=== PATIENT | female | born 1940 | race Caucasian/White ===

== ENCOUNTER → 2018-07-22 | Outpatient (CLI) | payer OTHER ==
[~2018-07-22] MED LIST: AMLO5 PO; ASPI81CH; ASPI81CH PO; ASPI81EC PO; ATEN25 PO; Advil200 M1; Armour Thyroid15 MG PO; B-12250 MCG; BENZ100A PO; CLOP75 PO; CONEST.3; CONEST.625; CONEST.625 PO; CONEST.9 PO; DIAZ2; DIAZ2 PO; HYOMAX; HYOS.125 SL; LORA.5 PO; LORA1 PO; MONT5TCH PO; Motion Sickness25 M1 PO; Norvasc2.5 MG PO; OMEP20ER; OMEP20ER PO; ONDA4 PO; OXYM.05NI; PARO10; PARO10 PO; PRAV10 PO; PRED20 PO; Pepto-Bismol262 M1; RXLORA1 PO; STOOL SOFTENER1 EAC1; THYR60 PO; THYROID; THYROID MED; ZOLP5; ZOLP5 PO; [UNRECOGNIZED DRUG - OTHER]; [UNRECOGNIZED DRUG - OTHER]
== END | disposition home or self-care (01) ==
LOC: PLD 14:01 → LAB SHORT 14:01
DX: L57.0 Actinic keratosis (principal)
CPT/HCPCS: 88305

== ENCOUNTER → 2018-09-22 | Outpatient (CLI) | payer OTHER ==
[~2018-09-22] MED LIST changes: -ASPI81CH; +Aspirin EC81 MG PO; -B-12250 MCG; -CONEST.9 PO; +CYAN1000I IM; +HYOS.125 PO; -HYOS.125 SL; +Imitrex50 MG PO; +PROM25 PO; +Premarin0.3 MG PO; +Vitamin D2000 UNIT PO
[2018-09-23 05:42] LABS: Stool Occult Bld Immuno 1 Negative (NEGATIVE); Stool Occult Bld Immuno 2 Negative (NEGATIVE)
== END | disposition home or self-care (01) ==
LOC: LAB SHORT 07:25 → LAB EV 07:25
PROVIDERS: Internal Medicine Gastroenterology
DX: R10.84 Generalized abdominal pain (principal); K59.00 Constipation, unspecified
CPT/HCPCS: 82274

== ENCOUNTER 2018-10-15 16:47 | Observation (INO) | payer OTHER ==
[~2018-10-15] VITALS: Ht 165.1 cm; Wt 69.2 kg
[~2018-10-15 16:47] MED LIST changes: -Imitrex50 MG PO; -PROM25 PO; -Vitamin D2000 UNIT PO
[2018-10-15] MEDS ORDERED: Imitrex50 MG PO (17:24)
[2018-10-15 17:26] LABS: BASOPHILS ABSOLUTE AUTO 0.03 K/mm3 (0.00-0.23); BASOPHILS PERCENT AUTO 0 % (0-2); EOSINOPHILS ABSOLUTE AUTO 0.05 K/mm3 (0.00-0.68); EOSINOPHILS PERCENT AUTO 1 % (0-6); Hematocrit 39.8 % (33.0-51.0); Hemoglobin 12.6 g/dL (11.5-16.0); IMMATURE GRAN ABSOLUTE AUTO 0.01 K/mm3 (0.00-0.10); IMMATURE GRAN PERCENT AUTO 0 % (0-1); LYMPHOCYTES ABSOLUTE AUTO 2.11 K/mm3 (0.84-5.20); LYMPHOCYTES PERCENT AUTO 29 % (21-46); MONOCYTES ABSOLUTE AUTO 0.63 K/mm3 (0.16-1.47); MONOCYTES PERCENT AUTO 9 % (4-13); Mean Corpuscular HGB 28.6 pg (26.0-34.0); Mean Corpuscular HGB Conc 31.7 g/dL (31.5-36.5); Mean Corpuscular Volume 90 fL (80-100); Mean Platelet Volume 11.5 fL (9.1-12.4); NEUTROPHILS ABSOLUTE AUTO 4.45 K/mm3 (1.96-9.15); NEUTROPHILS PERCENT AUTO 61 % (41-73); Platelet Count 202 K/mm3 (150-400); RDW Coefficient Variation 12.3 % (11.7-14.2); RDW Standard Deviation 40.3 fL (35.1-46.3); Red Blood Cell Count 4.41 M/mm3 (3.80-5.20); White Blood Cell Count 7.28 K/mm3 (4.00-11.30)
[2018-10-15 17:40] LABS: Alanine Aminotransfer (ALT/SGP 16 U/L (12-78); Albumin, Blood 3.9 g/dL (3.4-5.0); Alk Phos 85 U/L (50-136); Anion Gap 5 mmol/L (6-16); Aspartate Aminotrans (AST/SGOT 14 U/L (12-37); Bilirubin, Total 0.3 mg/dL (0.1-1.0); Blood Urea Nitrogen 23 mg/dL (8-24); Bun/Creatinine Ratio 21.7 (12.0-20.0); CO2, Blood 25 mmol/L (21-32); Chloride, Blood 109 mmol/L (98-108); Creatinine, Blood 1.06 mg/dL (0.40-1.00); Globulin, Blood 3.9 g/dL (2.2-4.0); Glomerular Filtration Rate 54 (60-); Glucose, Blood 96 mg/dL (70-99); Potassium, Blood 4.1 mmol/L (3.5-5.5); Sodium, Blood 139 mmol/L (136-145); Total Protein, Blood 7.8 g/dL (6.4-8.2); Troponin I <0.015 ng/mL (0.000-0.040)
[2018-10-15 18:10] LABS: Source, Urine Clean Catch
[2018-10-15 18:17] LABS: Bilirubin, Urine Neg (Neg); Blood, Urine Neg (Neg); Glucose Qualitative, Urine Neg (Neg); Ketones, Urine Neg (Neg); Leukocyte Esterase, Urine Neg (Neg); Nitrite, Urine Neg (Neg); Protein, Urine Neg (Neg); Urobilinogen, Urine NORM (Normal)
[2018-10-15 18:26] LABS: Appearance, Urine Clear (Clear); Color, Urine Yellow (P-Yellow)
[2018-10-15] MEDS ORDERED: Vitamin D2000 UNIT PO (19:29)
--- NOTE | 2018-10-16 03:24 | NUR ---
SHIFT SUMMARY PT ARRIVED TO THE FLOOR AND WAS ORIENTED TO HER ROOM. PT CONTINUES TO COMPLAIN OF HEADACHE, BUT REFUSED TYLENOL WHEN OFFERRED. PT STATED DIMMING THE LIGHTS WAS HELPFUL IN REDUCING HEADACHE. PT ALSO CONTINUES TO HAVE HTN, OF YET THE BLOOD PRESSURE REMAINS IN ACCEPTABLE LIMITS. WILL MONITOR THE BP CLOSELY. NO CALLS FROM TELEMETRY WERE RECIEVED. NO OTHER PT COMPLAINTS AT THIS TIME. WILL CONTINUE TO MONITOR.
[2018-10-16 04:53] LABS: Bun/Creatinine Ratio 18.7 (12.0-20.0); Calcium, Blood 8.4 mg/dL (8.5-10.1); Creatinine, Blood 1.07 mg/dL (0.40-1.00); Potassium, Blood 3.9 mmol/L (3.5-5.5)
--- NOTE | 2018-10-16 07:32 | NUR ---
PT TO IMAGING FOR MRI.
--- NOTE | 2018-10-16 11:21 | NUR ---
U/S AT BEDSIDE FOR CAROTID.
--- NOTE | 2018-10-16 15:51 | NUR ---
PT REPORTS SOME IMPROVEMENT AFTER IMITREX GIVEN THIS AM, PT REPORTS HEADACHE STARTING TO COME BACK. PT CONT TO HAVE VERTIGO THAT WORSENS WITH STANDING, UNSTEADY GAIT BUT HAS IMPROVED T/O THE DAY. SPOKE WITH DR VALVERDE ABOUT INCREASING THE FREQUENCY OF PRN IMITREX, PER DR VALVERDE OK TO GIVE TID PRN, EVERY 2 HOURS FOR A MAX OF 3 DOSES IN 24 HOURS. ALSO SPOKE WITH DR VALVERDE REGARDING PT HEART RATE, PER PCU NET MENDER HEART RATE HAS BEEN 50-LOW 60'S T/O THE DAY. PT HAS HOLDING PARAMETERS ON ATENOLOL TO HOLD FOR HR LESS THAN 65. SPOKE WITH DR VALVERDE REGARDING THIS AND HAVING TO HOLD THIS MEDICATION DUE TO HEART RATE BUT CONT ELEVATED BP, PER DR VALVERDE HOLD ATENOLOL FOR HR LESS 50 BPM.
--- NOTE | 2018-10-16 16:49 | NUR ---
SHIFT SUMMARY- PT A/OX4, 1 ASSIST WITH FWW INTO BATHROOM. PT CONTINUES TO HAVE AN UNSTEADY GAIT DUE TO BALANCE AND VERTIGO. PT REPORTS H/A T/O THE DAY, PRN IMITREX GIVEN WHICH SHE REPORTS SOME IMPROVEMENT BUT DIDNT LAST VERY LONG. PT REPORTS SHE DID NOT WANT TO TAKE ANY OTHER MEDICATIONS DUE TO ALLERGIES AND PREVIOUS REACTIONS. PT REPORTS NAUSEA THAT INCREASES WITH H/A, PT HAS DENIED NEED FOR ANTIEMETICS T/O THE DAY. LS CLEAR, ON RA. TELE SB AT 59. PT EVAL COMPLETED TODAY. NO OTHER ACUTE CHANGES THIS SHIFT.
[2018-10-17 05:29] LABS: BASOPHILS ABSOLUTE AUTO 0.04 K/mm3 (0.00-0.23); BASOPHILS PERCENT AUTO 1 % (0-2); EOSINOPHILS ABSOLUTE AUTO 0.09 K/mm3 (0.00-0.68); EOSINOPHILS PERCENT AUTO 2 % (0-6); Hematocrit 38.1 % (33.0-51.0); Hemoglobin 12.1 g/dL (11.5-16.0); IMMATURE GRAN ABSOLUTE AUTO 0.01 K/mm3 (0.00-0.10); IMMATURE GRAN PERCENT AUTO 0 % (0-1); LYMPHOCYTES ABSOLUTE AUTO 2.25 K/mm3 (0.84-5.20); LYMPHOCYTES PERCENT AUTO 38 % (21-46); MONOCYTES ABSOLUTE AUTO 0.53 K/mm3 (0.16-1.47); MONOCYTES PERCENT AUTO 9 % (4-13); Mean Corpuscular HGB 28.9 pg (26.0-34.0); Mean Corpuscular HGB Conc 31.8 g/dL (31.5-36.5); Mean Corpuscular Volume 91 fL (80-100); Mean Platelet Volume 11.9 fL (9.1-12.4); NEUTROPHILS ABSOLUTE AUTO 2.98 K/mm3 (1.96-9.15); NEUTROPHILS PERCENT AUTO 51 % (41-73); Platelet Count 186 K/mm3 (150-400); RDW Coefficient Variation 12.5 % (11.7-14.2); RDW Standard Deviation 41.6 fL (35.1-46.3); Red Blood Cell Count 4.19 M/mm3 (3.80-5.20)
[2018-10-17 05:53] LABS: Albumin, Blood 3.4 g/dL (3.4-5.0); Bilirubin, Total 0.4 mg/dL (0.1-1.0); Bun/Creatinine Ratio 16.7 (12.0-20.0); Calcium, Blood 8.5 mg/dL (8.5-10.1); Creatinine, Blood 1.08 mg/dL (0.40-1.00); Globulin, Blood 3.5 g/dL (2.2-4.0); Total Protein, Blood 6.9 g/dL (6.4-8.2)
[2018-10-17] MEDS ORDERED: PROM25 PO (12:49)
--- NOTE | 2018-10-17 12:50 | NUR ---
PT DENIES NEED FOR PHENERGAN SCRIPT TO BE SENT TO PHARMACY, STATES SHE TAKES OTC DRAMAMINE AND DOES NOT NEED THE PHENERGAN. PT AWAITING RIDE HOME AT THIS TIME.
--- NOTE | 2018-10-17 13:33 | NUR ---
DISCHARGE INSTRUCTIONS REVIEWED WITH PT. IV DC'D INTACT. EMILIANO FROM [place] IN TO TALK WITH PT. PT ENCOURAGED TO USE FWW AT HOME. PT CURRENTLY AWAITING RIDE HOME FROM [facility].
--- NOTE | 2018-10-17 14:35 | NUR ---
PT ESCORTED OUT VIA W/C TO D/C HOME WITH [facility]ANDSON AT 1430.
--- NOTE | 2018-10-17 17:02 | NUR ---
Yelena is well known to me from when her 8 years ago. She tells me she has been doing well, "except for these headaches and virtigo." She states that she is uncertain what is causing these and admits to feeling "a little worried." Yelena is stoic and takes pride in her independance. Her grandson has been staying with her to help. He is a good support. Yelena responded well to gentle delinquency counselor and prayer. She was in the process of discharge. She was grateful for visit.
== END 2018-10-17 14:42 | disposition home or self-care (01) ==
LOC: ER 16:47 → MEDS 16:48 → ENPENDDIS 10-17 12:20 → MEDS 10-17 14:42
PROVIDERS: Emergency Medicine; Family Medicine; Nurse Practitioner Acute Care; Physician Assistant; ADMIT Internal Medicine
DX: R20.0 Anesthesia of skin (principal); R26.9 Unspecified abnormalities of gait and mobility; H53.8 Other visual disturbances; E03.9 Hypothyroidism, unspecified; G43.909 Migraine, unspecified, not intractable, without status migrainosus; K21.9 Gastro-esophageal reflux disease without esophagitis; M19.90 Unspecified osteoarthritis, unspecified site; F41.1 Generalized anxiety disorder; F32.9 Major depressive disorder, single episode, unspecified; I12.9 Hypertensive chronic kidney disease with stage 1 through stage 4 chronic kidney disease, or unspecified chronic kidney disease; N18.3 Chronic kidney disease, stage 3 (moderate); R42 Dizziness and giddiness; G43.119 Migraine with aura, intractable, without status migrainosus; E78.00 Pure hypercholesterolemia, unspecified; Z86.73 Personal history of transient ischemic attack (TIA), and cerebral infarction without residual deficits; Z79.82 Long term (current) use of aspirin; Z79.899 Other long term (current) drug therapy; Z88.1 Allergy status to other antibiotic agents; Z88.8 Allergy status to other drugs, medicaments and biological substances; Z88.5 Allergy status to narcotic agent
CPT/HCPCS: 36415; 70450; 70553; 71046; 80048; 80053; 81003; 84443; 84484; 85025; 93005; 93010; 93880; 96372; 97116; 97162; 97530; 99285-25; A9577; G0378; J1650

== ENCOUNTER 2019-03-24 16:02 | Observation (INO) | payer OTHER ==
[~2019-03-24] VITALS: Ht 165.1 cm; Wt 66.8 kg
[~2019-03-24 16:02] MED LIST changes: -CYAN1000I IM; +CYANOCOBAL1000 MCG/1 IM; -HYOS.125 PO; -OMEP20ER PO; +PROM25 PO; +Vitamin D2000 UNIT PO
[2019-03-24 16:40] LABS: BASOPHILS ABSOLUTE AUTO 0.04 K/mm3 (0.00-0.23); BASOPHILS PERCENT AUTO 1 % (0-2); EOSINOPHILS PERCENT AUTO 1 % (0-6); Hematocrit 41.3 % (33.0-51.0); Hemoglobin 13.4 g/dL (11.5-16.0); IMMATURE GRAN ABSOLUTE AUTO 0.02 K/mm3 (0.00-0.10); IMMATURE GRAN PERCENT AUTO 0 % (0-1); LYMPHOCYTES ABSOLUTE AUTO 2.42 K/mm3 (0.84-5.20); LYMPHOCYTES PERCENT AUTO 30 % (21-46); MONOCYTES ABSOLUTE AUTO 0.48 K/mm3 (0.16-1.47); MONOCYTES PERCENT AUTO 6 % (4-13); Mean Corpuscular HGB 29.1 pg (26.0-34.0); Mean Corpuscular HGB Conc 32.4 g/dL (31.5-36.5); Mean Corpuscular Volume 90 fL (80-100); Mean Platelet Volume 11.2 fL (9.1-12.4); NEUTROPHILS ABSOLUTE AUTO 5.06 K/mm3 (1.96-9.15); NEUTROPHILS PERCENT AUTO 62 % (41-73); Platelet Count 209 K/mm3 (150-400); RDW Coefficient Variation 12.6 % (11.7-14.2); RDW Standard Deviation 41.4 fL (35.1-46.3); White Blood Cell Count 8.12 K/mm3 (4.00-11.30)
[2019-03-24 17:21] LABS: Albumin, Blood 3.8 g/dL (3.4-5.0); Bilirubin, Total 0.2 mg/dL (0.1-1.0); Bun/Creatinine Ratio 19.4 (12.0-20.0); Calcium, Blood 8.6 mg/dL (8.5-10.1); Creatinine, Blood 1.08 mg/dL (0.40-1.00); Total Protein, Blood 7.8 g/dL (6.4-8.2)
[2019-03-24] MEDS ORDERED: Imitrex50 MG PO (19:22)
[2019-03-24] MEDS ORDERED: OMEP20ER PO (19:22)
[2019-03-24] MEDS ORDERED: HYOS.125 PO (19:22)
--- NOTE | 2019-03-25 00:03 | NUR ---
Arrived from er on stretcher accompanied by staff, report received from rn, a+o, transfered to bed, wore skds until they kept her awake, vs checked as prescribed now only getting q1h, bp has been drifting down as desired by the dr, will continue to monitor and treat as appropriate, skin and lung are clear, able to ambulate to bathroom on own, first time assisted, saline locked, room air, call light in reach, bed in low position, currently resting as much as possible with frequent vitals checks
--- NOTE | 2019-03-25 01:02 | NUR ---
imitrix for migraine given, claims positive results,
[2019-03-25 03:20] LABS: Albumin, Blood 3.4 g/dL (3.4-5.0); Albumin/Globulin Ratio 1.1 (0.8-1.8); Bilirubin, Total 0.3 mg/dL (0.1-1.0); Bun/Creatinine Ratio 18.3 (12.0-20.0); Calcium, Blood 8.3 mg/dL (8.5-10.1); Creatinine, Blood 0.98 mg/dL (0.40-1.00); Globulin, Blood 3.2 g/dL (2.2-4.0); Potassium, Blood 4.2 mmol/L (3.5-5.5); Total Protein, Blood 6.6 g/dL (6.4-8.2)
[2019-03-25 05:49] LABS: CHOL/HDL RATIO 2.9; Cholesterol 209 mg/dL (50-200); HDL Cholesterol 71 mg/dL (>39); LDL/HDL RATIO 1.7; Low Density Lipoprotein Chol 117 mg/dL (0-110); Triglycerides 104 mg/dL (30-160); Very Low Density Lipoprot Chol 20 mg/dL (6-32)
--- NOTE | 2019-03-25 06:30 | NUR ---
bp stayed in a normal range for the whole shift, multiple vs checks per dr orders, pt resigned but cooprative, took off skds but had them put back on when she decided she would not be able to sleep anyway, saline locked, rm air, no nausea or dizzyness noted, pain in leg and arms but declined medication and worked with different non pharmalogical interventions to achive an acceptable level of pain relife, call light in reach, will continue to monitor and treat until share bsr with pt and day staff
[2019-03-25] MEDS ORDERED: LISI5 PO (11:30)
--- NOTE | 2019-03-25 13:05 | NUR ---
DISCHARGE INSTRUCTIONS REVIEWED WITH PT. IV DC'D INTACT. IM B12 SHOT GIVEN PRIOR TO DISCHARGE PER PT REQUEST. PT VSS UPON DISCHARGE. RX FAXED TO [facility]. PT CURRENTLY AWAITING RIDE HOME.
--- NOTE | 2019-03-25 13:39 | NUR ---
PT DISCHARGED HOME WITH [facility] AT 1340, ESCORTED OUT VIA W/C.
--- NOTE | 2019-03-25 18:10 | NUR ---
Per pt request, I met with Isabell who is well-known to me from her 's passing a few years ago. She spoke to me at length about her losses since then, and was tearful throughout conversation. Isabell is appreciaitive of gentle student assistance counselor and spiritual direction. Prayer provided at conclusion of visit. She is being d/c this afternoon.
== END 2019-03-25 13:40 | disposition home or self-care (01) ==
LOC: ER 16:02 → PCU 16:03
PROVIDERS: Emergency Medicine; Nurse Practitioner Acute Care; ADMIT Internal Medicine
DX: I16.1 Hypertensive emergency (principal); I12.9 Hypertensive chronic kidney disease with stage 1 through stage 4 chronic kidney disease, or unspecified chronic kidney disease; N18.3 Chronic kidney disease, stage 3 (moderate); E78.5 Hyperlipidemia, unspecified; F41.9 Anxiety disorder, unspecified; F32.9 Major depressive disorder, single episode, unspecified; I51.81 Takotsubo syndrome; M17.0 Bilateral primary osteoarthritis of knee; M19.012 Primary osteoarthritis, left shoulder; M19.011 Primary osteoarthritis, right shoulder; G43.909 Migraine, unspecified, not intractable, without status migrainosus; E03.9 Hypothyroidism, unspecified; G47.00 Insomnia, unspecified; G25.81 Restless legs syndrome; E55.9 Vitamin D deficiency, unspecified; K21.9 Gastro-esophageal reflux disease without esophagitis; M79.7 Fibromyalgia; K58.9 Irritable bowel syndrome, unspecified; Z90.49 Acquired absence of other specified parts of digestive tract; Z90.710 Acquired absence of both cervix and uterus; Z88.1 Allergy status to other antibiotic agents; Z88.2 Allergy status to sulfonamides; Z88.5 Allergy status to narcotic agent; Z88.8 Allergy status to other drugs, medicaments and biological substances; Z79.82 Long term (current) use of aspirin; Z79.899 Other long term (current) drug therapy
CPT/HCPCS: 36415; 70450; 80053; 80061; 84484; 85025; 93005; 93010; 96372; 96374; 96375; 99285-25; G0378; J0360; J3420

== ENCOUNTER 2019-12-06 12:15 | Emergency (ER) | payer OTHER ==
[~2019-12-06] VITALS: Ht 165.1 cm; Wt 68.0 kg
[~2019-12-06 12:15] MED LIST changes: +CONEST.9 PO; +HYOS.125 PO; +Imitrex50 MG PO; +LISI5 PO; +Lisinopril2.5 MG PO; +OMEP20ER PO; +ROPI.25 PO
[2019-12-06 13:06] LABS: Alanine Aminotransfer (ALT/SGP 19 U/L (12-78); Albumin, Blood 3.8 g/dL (3.4-5.0); Alk Phos 94 U/L (50-136); Anion Gap 6 mmol/L (6-16); Aspartate Aminotrans (AST/SGOT 17 U/L (12-37); Bilirubin, Total 0.3 mg/dL (0.1-1.0); Blood Urea Nitrogen 23 mg/dL (8-24); Bun/Creatinine Ratio 20.4 (12.0-20.0); CO2, Blood 25 mmol/L (21-32); Calcium, Blood 8.8 mg/dL (8.5-10.1); Chloride, Blood 108 mmol/L (98-108); Creatinine, Blood 1.13 mg/dL (0.40-1.00); Glomerular Filtration Rate 50 (60-); Glucose, Blood 151 mg/dL (70-99); Sodium, Blood 139 mmol/L (136-145); Total Protein, Blood 7.8 g/dL (6.4-8.2); Troponin I <0.015 ng/mL (0.000-0.040)
[2019-12-06 13:20] LABS: BASOPHILS ABSOLUTE AUTO 0.03 K/mm3 (0.00-0.23); BASOPHILS PERCENT AUTO 1 % (0-2); EOSINOPHILS ABSOLUTE AUTO 0.07 K/mm3 (0.00-0.68); EOSINOPHILS PERCENT AUTO 1 % (0-6); Hematocrit 38.2 % (33.0-51.0); Hemoglobin 12.2 g/dL (11.5-16.0); IMMATURE GRAN ABSOLUTE AUTO 0.01 K/mm3 (0.00-0.10); IMMATURE GRAN PERCENT AUTO 0 % (0-1); LYMPHOCYTES ABSOLUTE AUTO 1.57 K/mm3 (0.84-5.20); LYMPHOCYTES PERCENT AUTO 27 % (21-46); MONOCYTES ABSOLUTE AUTO 0.42 K/mm3 (0.16-1.47); MONOCYTES PERCENT AUTO 7 % (4-13); Mean Corpuscular HGB 28.5 pg (26.0-34.0); Mean Corpuscular HGB Conc 31.9 g/dL (31.5-36.5); Mean Corpuscular Volume 89 fL (80-100); Mean Platelet Volume 11.1 fL (9.1-12.4); NEUTROPHILS ABSOLUTE AUTO 3.68 K/mm3 (1.96-9.15); NEUTROPHILS PERCENT AUTO 64 % (41-73); Platelet Count 211 K/mm3 (150-400); RDW Coefficient Variation 12.7 % (11.7-14.2); RDW Standard Deviation 41.7 fL (35.1-46.3); Red Blood Cell Count 4.28 M/mm3 (3.80-5.20); White Blood Cell Count 5.78 K/mm3 (4.00-11.30)
== END 2019-12-06 18:01 | disposition home or self-care (01) ==
LOC: ER 12:15
PROVIDERS: Emergency Medicine
DX: R07.9 Chest pain, unspecified (principal); R42 Dizziness and giddiness; I25.2 Old myocardial infarction; I10 Essential (primary) hypertension; E03.9 Hypothyroidism, unspecified; E78.5 Hyperlipidemia, unspecified; F41.9 Anxiety disorder, unspecified; F32.9 Major depressive disorder, single episode, unspecified; K21.9 Gastro-esophageal reflux disease without esophagitis; Z88.8 Allergy status to other drugs, medicaments and biological substances; Z88.2 Allergy status to sulfonamides; Z88.1 Allergy status to other antibiotic agents; Z88.5 Allergy status to narcotic agent; Z79.899 Other long term (current) drug therapy; Z86.73 Personal history of transient ischemic attack (TIA), and cerebral infarction without residual deficits
CPT/HCPCS: 36415; 71046; 80053; 83880; 84484; 85025; 93005; 93010; 99285-25

== ENCOUNTER 2020-01-19 09:04 | Day surgery (SDC) | payer OTHER ==
--- NOTE | 2020-01-19 10:46 | NUR ---
DISCHARGE SUMMARY Patient up to Ambulate independently. Gait steady. Discharge instructions reviewed with patient. Patient verbalizes understanding. Copy given to patient to take home. Patient States Post-Procedure ride home is outside, daughter to milk pickup truck driver and take her home. iv dc'd.
== END 2020-01-19 12:00 | disposition home or self-care (01) ==
LOC: ORD 09:04 → CT 09:04 → ORD 09:30 → CT 10:00 → ORD 12:00
DX: I25.10 Atherosclerotic heart disease of native coronary artery without angina pectoris (principal); I12.9 Hypertensive chronic kidney disease with stage 1 through stage 4 chronic kidney disease, or unspecified chronic kidney disease; N18.31 Chronic kidney disease, stage 3a; E78.00 Pure hypercholesterolemia, unspecified; K21.9 Gastro-esophageal reflux disease without esophagitis; I51.81 Takotsubo syndrome; E03.9 Hypothyroidism, unspecified; E55.9 Vitamin D deficiency, unspecified; E78.5 Hyperlipidemia, unspecified; I73.00 Raynaud's syndrome without gangrene; M19.90 Unspecified osteoarthritis, unspecified site; Z79.82 Long term (current) use of aspirin; Z79.899 Other long term (current) drug therapy; Z86.73 Personal history of transient ischemic attack (TIA), and cerebral infarction without residual deficits; Z88.1 Allergy status to other antibiotic agents; Z88.2 Allergy status to sulfonamides; Z88.5 Allergy status to narcotic agent; Z88.8 Allergy status to other drugs, medicaments and biological substances
CPT/HCPCS: 75574; Q9967

== ENCOUNTER 2020-09-18 11:20 | Emergency (ER) | payer OTHER ==
[~2020-09-18] VITALS: Ht 165.1 cm; Wt 69.0 kg
[2020-09-18 12:08] LABS: BASOPHILS ABSOLUTE AUTO 0.03 K/mm3 (0.00-0.23); BASOPHILS PERCENT AUTO 0 % (0-2); EOSINOPHILS ABSOLUTE AUTO 0.02 K/mm3 (0.00-0.68); EOSINOPHILS PERCENT AUTO 0 % (0-6); Hematocrit 38.8 % (33.0-51.0); Hemoglobin 12.5 g/dL (11.5-16.0); IMMATURE GRAN ABSOLUTE AUTO 0.01 K/mm3 (0.00-0.10); IMMATURE GRAN PERCENT AUTO 0 % (0-1); LYMPHOCYTES ABSOLUTE AUTO 1.84 K/mm3 (0.84-5.20); LYMPHOCYTES PERCENT AUTO 26 % (21-46); MONOCYTES PERCENT AUTO 8 % (4-13); Mean Corpuscular HGB 28.5 pg (26.0-34.0); Mean Corpuscular HGB Conc 32.2 g/dL (31.5-36.5); Mean Corpuscular Volume 89 fL (80-100); Mean Platelet Volume 11.3 fL (9.1-12.4); NEUTROPHILS ABSOLUTE AUTO 4.69 K/mm3 (1.96-9.15); NEUTROPHILS PERCENT AUTO 65 % (41-73); Platelet Count 200 K/mm3 (150-400); RDW Coefficient Variation 12.5 % (11.7-14.2); RDW Standard Deviation 40.7 fL (35.1-46.3); Red Blood Cell Count 4.38 M/mm3 (3.80-5.20); White Blood Cell Count 7.19 K/mm3 (4.00-11.30)
[2020-09-18 12:30] LABS: Alanine Aminotransfer (ALT/SGP 13 U/L (12-78); Albumin, Blood 3.7 g/dL (3.4-5.0); Albumin/Globulin Ratio 0.9 (0.8-1.8); Alk Phos 92 U/L (50-136); Anion Gap 6 mmol/L (6-16); Aspartate Aminotrans (AST/SGOT 14 U/L (12-37); Bilirubin, Total 0.3 mg/dL (0.1-1.0); Blood Urea Nitrogen 22 mg/dL (8-24); Bun/Creatinine Ratio 18.2 (12.0-20.0); CO2, Blood 28 mmol/L (21-32); Calcium, Blood 8.7 mg/dL (8.5-10.1); Chloride, Blood 107 mmol/L (98-108); Creatinine, Blood 1.21 mg/dL (0.40-1.00); Globulin, Blood 4.1 g/dL (2.2-4.0); Glomerular Filtration Rate 46 (60-); Glucose, Blood 93 mg/dL (70-99); Potassium, Blood 4.2 mmol/L (3.5-5.5); Sodium, Blood 141 mmol/L (136-145); Total Protein, Blood 7.8 g/dL (6.4-8.2); Troponin I <0.015 ng/mL (0.000-0.040)
== END 2020-09-18 15:40 | disposition home or self-care (01) ==
LOC: ER 11:20
PROVIDERS: Physician Assistant
DX: R07.9 Chest pain, unspecified (principal); I10 Essential (primary) hypertension; I25.2 Old myocardial infarction; Z79.899 Other long term (current) drug therapy
CPT/HCPCS: 36415; 71046; 80053; 83690; 84484; 85025; 93005; 93010; 99285-25; A9270

== ENCOUNTER → 2020-10-16 | Outpatient (CLI) | payer OTHER ==
[2020-10-18 19:10] LABS: Adenovirus F 40/41 Not Detected (NOT DETECT); Astrovirus Not Detected (NOT DETECT); Campylobacter Sp Not Detected (NOT DETECT); Cryptosporidium Not Detected (NOT DETECT); Cyclospora Cayetanensis Not Detected (NOT DETECT); E. Coli O157 Not Detected (NOT DETECT); Entamoeba Histolytica Not Detected (NOT DETECT); Enteroaggregative E. coli-EAEC Not Detected (NOT DETECT); Enteropathogenic E. coli-EPEC Not Detected (NOT DETECT); Enterotoxigenic E. coli-ETEC Not Detected (NOT DETECT); Giardia Lamblia Not Detected (NOT DETECT); Norovirus GI/GII Not Detected (NOT DETECT); Plesiomonas Shigelloides Not Detected (NOT DETECT); Rotavirus A Not Detected (NOT DETECT); Salmonella Sp Not Detected (NOT DETECT); Sapovirus Not Detected (NOT DETECT); Shiga Toxin-prod E. coli-STEC Not Detected (NOT DETECT); Shigella/Enteroin E. coli-EIEC Not Detected (NOT DETECT); Vibrio Cholerae Not Detected (NOT DETECT); Vibrio Sp Not Detected (NOT DETECT); Yersinia Enterocolitica Not Detected (NOT DETECT)
== END | disposition home or self-care (01) ==
LOC: LAB SHORT 15:04
PROVIDERS: Internal Medicine Gastroenterology
DX: R19.7 Diarrhea, unspecified (principal)
CPT/HCPCS: 0097U

== ENCOUNTER 2020-10-25 12:27 | Day surgery (SDC) | payer OTHER ==
[~2020-10-25] VITALS: Ht 165.1 cm; Wt 69.5 kg
[2020-10-25] MEDS ORDERED: ASPI81CH (13:43)
== END 2020-10-25 16:15 | disposition home or self-care (01) ==
LOC: ORSCSDS 12:27
DX: R19.7 Diarrhea, unspecified (principal); D12.0 Benign neoplasm of cecum; K57.30 Diverticulosis of large intestine without perforation or abscess without bleeding; K31.7 Polyp of stomach and duodenum; K29.00 Acute gastritis without bleeding; Z86.010 Personal history of colon polyps; R10.84 Generalized abdominal pain; I10 Essential (primary) hypertension; Z79.899 Other long term (current) drug therapy
CPT/HCPCS: 88305; 88342; J2704; J7120

== ENCOUNTER → 2022-06-16 | Outpatient (CLI) | payer OTHER ==
[~2022-06-16] MED LIST changes: +ASPI81CH
== END | disposition home or self-care (01) ==
LOC: LAB SHORT 15:23
DX: N39.0 Urinary tract infection, site not specified (principal)
CPT/HCPCS: 87077; 87086; 87186

== ENCOUNTER 2024-04-04 14:34 | Emergency (ER) | payer OTHER ==
[~2024-04-04] VITALS: Ht 165.1 cm; Wt 66.2 kg
[~2024-04-04 14:34] MED LIST changes: -AMOCLA875 PO; -DRAMAMINE25 M2 PO; -ELIQUIS5 M2 PO; -Q-Tussin100 MG/5 M PO; -VISBIOME 112.51 EACH PO
[2024-04-04] MEDS ORDERED: NS 1,000 ML IV SCH (15:25)
[2024-04-04 15:54] LABS: BASOPHILS ABSOLUTE AUTO 0.02 K/mm3 (0.00-0.23); BASOPHILS PERCENT AUTO 0 % (0-2); EOSINOPHILS ABSOLUTE AUTO 0.02 K/mm3 (0.00-0.68); EOSINOPHILS PERCENT AUTO 0 % (0-6); Hematocrit 37.2 % (33.0-51.0); Hemoglobin 12.6 g/dL (11.5-16.0); IMMATURE GRAN ABSOLUTE AUTO 0.02 K/mm3 (0.00-0.10); IMMATURE GRAN PERCENT AUTO 0 % (0-1); LYMPHOCYTES ABSOLUTE AUTO 2.01 K/mm3 (0.84-5.20); LYMPHOCYTES PERCENT AUTO 44 % (21-46); MONOCYTES ABSOLUTE AUTO 0.48 K/mm3 (0.16-1.47); MONOCYTES PERCENT AUTO 11 % (4-13); Mean Corpuscular HGB 29.2 pg (26.0-34.0); Mean Corpuscular HGB Conc 33.9 g/dL (31.5-36.5); Mean Corpuscular Volume 86 fL (80-100); Mean Platelet Volume 11.6 fL (9.1-12.4); NEUTROPHILS ABSOLUTE AUTO 1.98 K/mm3 (1.96-9.15); NEUTROPHILS PERCENT AUTO 44 % (41-73); Platelet Count 134 K/mm3 (150-400); RDW Coefficient Variation 12.1 % (11.7-14.2); RDW Standard Deviation 38.7 fL (35.1-46.3); Red Blood Cell Count 4.31 M/mm3 (3.80-5.20); White Blood Cell Count 4.53 K/mm3 (4.00-11.30)
[2024-04-04] MEDS ORDERED: Metoclopramide HCl 5MG / ML 2ML Vial IV ONE (16:05)
[2024-04-04 16:10] LABS: Albumin, Blood 3.4 g/dL (3.4-5.0); Albumin/Globulin Ratio 0.8 (0.8-1.8); Bilirubin, Total 0.4 mg/dL (0.1-1.0); Bun/Creatinine Ratio 13.6 (12.0-20.0); Calcium, Blood 8.8 mg/dL (8.5-10.1); Creatinine, Blood 1.1 mg/dL (0.40-1.00); Globulin, Blood 4.2 g/dL (2.2-4.0); Magnesium, Blood 2.4 mg/dL (1.6-2.4); Potassium, Blood 4.1 mmol/L (3.5-5.5); Total Protein, Blood 7.6 g/dL (6.4-8.2)
[2024-04-04 16:28] LABS: Influenza A, PCR NEGATIVE (NEGATIVE); Influenza B, PCR NEGATIVE (NEGATIVE); Resp Syncytial Virus, PCR NEGATIVE (NEGATIVE); SARS-Cov-2 (COVID-19) PCR, MMC NEGATIVE (NEGATIVE)
[2024-04-04] MEDS ORDERED: LORazepam 2 MG/ML 1ML Injection IV ONE (17:00)
[2024-04-04 19:24] LABS: Source, Urine Clean Catch
[2024-04-04 19:27] LABS: Appearance, Urine Clear (Clear); Bilirubin, Urine Neg (Neg); Blood, Urine Neg (Neg); Glucose Qualitative, Urine Neg (Neg); Ketones, Urine Neg (Neg); Leukocyte Esterase, Urine Neg (Neg); Nitrite, Urine Neg (Neg); Protein, Urine Neg (Neg); Specific Gravity, Urine 1.005 (1.003-1.022); Urobilinogen, Urine NORM (Normal)
[2024-04-04 19:40] LABS: Color, Urine Pale Yellow (P-Yellow)
[2024-04-04] MEDS ORDERED: Atenolol 25 MG Tab PO ONE (19:55)
[2024-04-04] MEDS ORDERED: DRAMAMINE25 M2 PO (20:49)
[2024-04-04] MEDS ORDERED: LORA.5 PO (21:23)
[2024-04-04 21:24] VITALS: BP 167/80
== END 2024-04-04 21:35 | disposition home or self-care (01) ==
LOC: ER 14:34
PROVIDERS: Emergency Medicine
DX: E86.0 Dehydration (principal); Z88.8 Allergy status to other drugs, medicaments and biological substances; Z88.2 Allergy status to sulfonamides; Z88.1 Allergy status to other antibiotic agents; Z79.899 Other long term (current) drug therapy; Z79.82 Long term (current) use of aspirin; I25.2 Old myocardial infarction; I12.9 Hypertensive chronic kidney disease with stage 1 through stage 4 chronic kidney disease, or unspecified chronic kidney disease; E03.9 Hypothyroidism, unspecified; E78.5 Hyperlipidemia, unspecified; G43.909 Migraine, unspecified, not intractable, without status migrainosus; N18.30 Chronic kidney disease, stage 3 unspecified; I10 Essential (primary) hypertension
CPT/HCPCS: 0241U; 70450; 71045; 74177; 80053; 81003; 82947; 83690; 83735; 84484; 85025; 93005; 93010; 96361; 96374-59; 96375; 99284-25; A9270; J2060; J2765; J7030; Q9967

== ENCOUNTER → 2024-04-04 | Outpatient (CLI) | payer OTHER ==
[~2024-04-04] MED LIST changes: +AMOCLA875 PO; -ASPI81CH; +DRAMAMINE25 M2 PO; +ELIQUIS5 M2 PO; +Q-Tussin100 MG/5 M PO; +VISBIOME 112.51 EACH PO
[2024-04-04 13:50] LABS: BASOPHILS ABSOLUTE AUTO 0.01 K/mm3 (0.00-0.23); BASOPHILS PERCENT AUTO 0 % (0-2); EOSINOPHILS ABSOLUTE AUTO 0.02 K/mm3 (0.00-0.68); EOSINOPHILS PERCENT AUTO 1 % (0-6); Hematocrit 39.1 % (33.0-51.0); Hemoglobin 12.7 g/dL (11.5-16.0); IMMATURE GRAN ABSOLUTE AUTO 0.01 K/mm3 (0.00-0.10); IMMATURE GRAN PERCENT AUTO 0 % (0-1); LYMPHOCYTES ABSOLUTE AUTO 1.68 K/mm3 (0.84-5.20); LYMPHOCYTES PERCENT AUTO 44 % (21-46); MONOCYTES ABSOLUTE AUTO 0.44 K/mm3 (0.16-1.47); MONOCYTES PERCENT AUTO 12 % (4-13); Mean Corpuscular HGB 28.4 pg (26.0-34.0); Mean Corpuscular HGB Conc 32.5 g/dL (31.5-36.5); Mean Corpuscular Volume 88 fL (80-100); NEUTROPHILS ABSOLUTE AUTO 1.65 K/mm3 (1.96-9.15); NEUTROPHILS PERCENT AUTO 43 % (41-73); RDW Coefficient Variation 12.4 % (11.7-14.2); RDW Standard Deviation 39.5 fL (35.1-46.3); Red Blood Cell Count 4.47 M/mm3 (3.80-5.20); White Blood Cell Count 3.81 K/mm3 (4.00-11.30)
[2024-04-04 14:04] LABS: Albumin, Blood 3.6 g/dL (3.4-5.0); Albumin/Globulin Ratio 0.9 (0.8-1.8); Bilirubin, Total 0.4 mg/dL (0.1-1.0); Bun/Creatinine Ratio 13.1 (12.0-20.0); Calcium, Blood 8.5 mg/dL (8.5-10.1); Creatinine, Blood 1.3 mg/dL (0.40-1.00); Globulin, Blood 4.2 g/dL (2.2-4.0); Potassium, Blood 4.5 mmol/L (3.5-5.5); Total Protein, Blood 7.8 g/dL (6.4-8.2)
[2024-04-04 14:48] LABS: Mean Platelet Volume 11.6 fL (9.1-12.4); Platelet Count 133 K/mm3 (150-400)
== END | disposition home or self-care (01) ==
LOC: LAB SHORT 13:45 → LAB 13:45
PROVIDERS: Family Medicine
DX: I10 Essential (primary) hypertension (principal)
CPT/HCPCS: 80053; 85025

== ENCOUNTER 2024-04-09 19:27 | Inpatient (IN) | payer OTHER ==
[~2024-04-09] VITALS: Ht 165.1 cm; Wt 70.0 kg
[~2024-04-09 19:27] MED LIST changes: +DRAMAMINE25 M2 PO
[2024-04-09 20:04] LABS: BASOPHILS ABSOLUTE AUTO 0.02 K/mm3 (0.00-0.23); BASOPHILS PERCENT AUTO 0 % (0-2); EOSINOPHILS ABSOLUTE AUTO 0.02 K/mm3 (0.00-0.68); EOSINOPHILS PERCENT AUTO 0 % (0-6); Hematocrit 35.4 % (33.0-51.0); Hemoglobin 11.9 g/dL (11.5-16.0); IMMATURE GRAN ABSOLUTE AUTO 0.03 K/mm3 (0.00-0.10); IMMATURE GRAN PERCENT AUTO 0 % (0-1); LYMPHOCYTES ABSOLUTE AUTO 1.54 K/mm3 (0.84-5.20); LYMPHOCYTES PERCENT AUTO 13 % (21-46); MONOCYTES ABSOLUTE AUTO 0.98 K/mm3 (0.16-1.47); MONOCYTES PERCENT AUTO 8 % (4-13); Mean Corpuscular HGB Conc 33.6 g/dL (31.5-36.5); Mean Corpuscular Volume 86 fL (80-100); Mean Platelet Volume 11.5 fL (9.1-12.4); NEUTROPHILS ABSOLUTE AUTO 9.54 K/mm3 (1.96-9.15); NEUTROPHILS PERCENT AUTO 79 % (41-73); Platelet Count 199 K/mm3 (150-400); RDW Standard Deviation 38.1 fL (35.1-46.3); White Blood Cell Count 12.13 K/mm3 (4.00-11.30)
[2024-04-09 20:23] LABS: Albumin, Blood 3.1 g/dL (3.4-5.0); Albumin/Globulin Ratio 0.8 (0.8-1.8); Bilirubin, Total 0.7 mg/dL (0.1-1.0); Bun/Creatinine Ratio 11.8 (12.0-20.0); Calcium, Blood 8.7 mg/dL (8.5-10.1); Creatinine, Blood 1.1 mg/dL (0.40-1.00); Globulin, Blood 4.1 g/dL (2.2-4.0); Potassium, Blood 3.5 mmol/L (3.5-5.5); Total Protein, Blood 7.2 g/dL (6.4-8.2)
[2024-04-10] MEDS ORDERED: Mag Hydrox/AL Hydrox/Simeth 30 ML UDC PO ONE (01:50)
[2024-04-10] MEDS ORDERED: Lidocaine 2% Viscous Soln 15 ML UDC PO ONE (01:55)
[2024-04-10] MEDS ORDERED: Azithromycin 500 MG in NS 250 ML IV ONE (03:10)
[2024-04-10] MEDS ORDERED: CefTRIAXone Sodium 1,000 MG in NS 50 ML IV ONE (03:10)
[2024-04-10] MEDS ORDERED: FLU VACC TS2024-25(6MOS UP)/PF 45 MCG/0.5 ML SYRINGE IM ONE (03:35)
[2024-04-10] MEDS ORDERED: Acetaminophen 325 MG TABLET PO PRN (03:35)
[2024-04-10 05:23] LABS: BASOPHILS ABSOLUTE AUTO 0.02 K/mm3 (0.00-0.23); BASOPHILS PERCENT AUTO 0 % (0-2); EOSINOPHILS ABSOLUTE AUTO 0.01 K/mm3 (0.00-0.68); EOSINOPHILS PERCENT AUTO 0 % (0-6); Hematocrit 33.1 % (33.0-51.0); Hemoglobin 11.1 g/dL (11.5-16.0); IMMATURE GRAN ABSOLUTE AUTO 0.02 K/mm3 (0.00-0.10); IMMATURE GRAN PERCENT AUTO 0 % (0-1); LYMPHOCYTES ABSOLUTE AUTO 1.81 K/mm3 (0.84-5.20); LYMPHOCYTES PERCENT AUTO 20 % (21-46); MONOCYTES ABSOLUTE AUTO 0.84 K/mm3 (0.16-1.47); MONOCYTES PERCENT AUTO 9 % (4-13); Mean Corpuscular HGB Conc 33.5 g/dL (31.5-36.5); Mean Corpuscular Volume 86 fL (80-100); Mean Platelet Volume 11.8 fL (9.1-12.4); NEUTROPHILS ABSOLUTE AUTO 6.36 K/mm3 (1.96-9.15); NEUTROPHILS PERCENT AUTO 70 % (41-73); Platelet Count 174 K/mm3 (150-400); RDW Coefficient Variation 12.2 % (11.7-14.2); RDW Standard Deviation 38.7 fL (35.1-46.3); Red Blood Cell Count 3.83 M/mm3 (3.80-5.20); White Blood Cell Count 9.06 K/mm3 (4.00-11.30)
[2024-04-10 05:40] LABS: Anti-Xa UFH, PHA Monitoring <0.10 IU/mL; International Normalized Ratio 0.94; Prothrombin Time Results 10.1 Sec (9.7-11.5)
[2024-04-10 05:44] LABS: Albumin/Globulin Ratio 0.8 (0.8-1.8); Bilirubin, Total 0.8 mg/dL (0.1-1.0); Bun/Creatinine Ratio 9.6 (12.0-20.0); Calcium, Blood 8.4 mg/dL (8.5-10.1); Creatinine, Blood 1.14 mg/dL (0.40-1.00); Globulin, Blood 3.9 g/dL (2.2-4.0); Total Protein, Blood 6.9 g/dL (6.4-8.2)
[2024-04-10] MEDS ORDERED: Heparin Sodium,Porcine/0.5 NS 500 ML IV SCH (06:15)
[2024-04-10] MEDS ORDERED: Heparin Sodium 5000 Units/ML 1ML MDV IV ONE (07:00)
[2024-04-10] MEDS ORDERED: Enoxaparin 40 MG/0.4 ML SYR SC SCH (09:00)
[2024-04-10] MEDS ORDERED: Lactobacil 2-S.Thermo-Bifido 1 1 Cap PO SCH (09:00)
[2024-04-10] MEDS ORDERED: TraMADol HCl 50 MG Tab PO PRN (12:10)
[2024-04-10] MEDS ORDERED: TROLAMINE SALICYLATE 10% CREAM 141 GM TUBE TOP PRN (12:30)
[2024-04-10] MEDS ORDERED: Dose Adjust by Pharmacy XX STA (13:51)
[2024-04-10] MEDS ORDERED: LORazepam 2 MG/ML 1ML Injection IV ONE (14:15)
[2024-04-10] MEDS ORDERED: rOPINIRole HCl 0.25 MG Tab PO PRN (14:45)
[2024-04-10] MEDS ORDERED: HydrALAZINE HCl 20 MG / ML 1ML Vial IV PRN ×2 (15:00→17:25)
[2024-04-10] MEDS ORDERED: FentaNYL Citrate 50 MCG/ML 2 ML Injection IV PRN (15:45)
[2024-04-10] MEDS ORDERED: AmLODIPine Besylate 5 MG Tab PO ONE (18:00)
[2024-04-10] MEDS ORDERED: Cholecalciferol 1000 Unit Tablet (=25MCG) PO SCH (18:00)
[2024-04-10 18:31] VITALS: BP 144/102
[2024-04-10 18:34] VITALS: BP 208/98
--- NOTE | 2024-04-10 18:45 | NUR ---
PATIENT ARRIVES TO UNIT VIA BED AND TRANSFFERED TO OUR BED. DAUGHTER AT BEDSIDE. VITAL SIGNS TAKEN AND BLOOD PRESSURE ELEVATED. WAS GIVEN MEDICTIONS PER EMAR AND BLOOD PRESSURE SHORTLY CAME DOWN AFTER. PATIENT TEMPERATURE ELEVATED AND THAT WAS PASSED OFF TO ONCOMING BISQUE WARE DIPPER RN. BEDSIDE SHIFT REPORT WAS GIVEN AND CESAR RN TO TAKE OVER.
[2024-04-10] MEDS ORDERED: PARO10 PO (18:52)
[2024-04-10 19:32] VITALS: BP 174/66
[2024-04-10] MEDS ORDERED: Atenolol 25 MG Tab PO SCH (21:00)
[2024-04-10] MEDS ORDERED: Zolpidem Tartrate 5 MG Tab PO SCH (21:00)
[2024-04-10] MEDS ORDERED: Oxymetazoline 0.05% Nasal Relief Spray 15mL BTL PRN (21:25)
--- NOTE | 2024-04-10 22:00 | NUR ---
ASSUMPTION OF CARE/TRANSFER NOTE THIS RN ASSUMED CARE OF PATIENT AT 1900. PT ARRIVED TO UNIT JUST PRIOR TO SHIFT CHANGE. BEDSIDE SHIFT REPORT DONE IN ROOM WITH PATIENT AND DAUGHTER PRESENT. AT THAT TIME PT WAS HYPERTENSIVE AND TACHYCARDIC. PREVIOUS RN MEDICATED WITH HYDRALAZINE, RECHECK OF BP SHOWING SBP 170'S. ST WITH HR 110-120. PT FEBRILE WITH TEMP 100.4. PT REQUESTING TYLENOL FOR PAIN. MEDICATED PER EMAR. PT CONTINUED TO HAVE LEFT SIDE RADIATING PLEURITIC PAIN THAT WAS MADE WORSE WITH DEEP BREATHING AND COUGHING. NO NOTED PRODUCTIVE SPUTUM AT THIS TIME. PT MEDICATED WITH FENTANYL IV AND REPORTED GOOD RESULTS WITH PAIN CONTROL. DAUGHTER AT BEDSIDE TO ASSIST WITH ADMISSION HISTORY. PT REPORTS WALKING AT BASELINE WITHOUT ASSISTIVE DEVICES. BEDREST AT THIS TIME. REPORTING WEAKNESS AND PAIN WITH MOVING. CHRONIC BACK PAIN. MEDICATED WITH ASPERCREME PER EMAR. ORDER FOR AFRIN RECEIVED FROM PROVIDER BRENNA D/T C/O CONGESTION. PT EDUCATED REGARDING THE IMPORTANCE OF DEEP BREATHING AND COUGHING DESPITE PAIN. NEURO INTACT. HX OF CVA/TIA, NO DEFICITS NOTED A THIS TIME. PT REPORTS PREVIOUS RIGHT SIDED DEFICITS THAT GOT BETTER OVER TIME. BED IN LOWEST POSITION AND CALL LIGHT WITHIN REACH.
[2024-04-10 23:38] VITALS: BP 122/62
[2024-04-11] VITALS (7 sets, daily range): BP systolic 126–165; BP diastolic 47–84
[2024-04-11 03:35] LABS: BASOPHILS ABSOLUTE AUTO 0.04 K/mm3 (0.00-0.23); BASOPHILS PERCENT AUTO 0 % (0-2); EOSINOPHILS PERCENT AUTO 0 % (0-6); Hematocrit 32.2 % (33.0-51.0); Hemoglobin 10.6 g/dL (11.5-16.0); IMMATURE GRAN ABSOLUTE AUTO 0.08 K/mm3 (0.00-0.10); IMMATURE GRAN PERCENT AUTO 1 % (0-1); LYMPHOCYTES ABSOLUTE AUTO 2.09 K/mm3 (0.84-5.20); LYMPHOCYTES PERCENT AUTO 15 % (21-46); MONOCYTES ABSOLUTE AUTO 1.14 K/mm3 (0.16-1.47); MONOCYTES PERCENT AUTO 8 % (4-13); Mean Corpuscular HGB 28.4 pg (26.0-34.0); Mean Corpuscular HGB Conc 32.9 g/dL (31.5-36.5); Mean Corpuscular Volume 86 fL (80-100); Mean Platelet Volume 12.6 fL (9.1-12.4); NEUTROPHILS ABSOLUTE AUTO 10.47 K/mm3 (1.96-9.15); NEUTROPHILS PERCENT AUTO 76 % (41-73); Platelet Count 203 K/mm3 (150-400); RDW Coefficient Variation 12.4 % (11.7-14.2); RDW Standard Deviation 39.5 fL (35.1-46.3); Red Blood Cell Count 3.73 M/mm3 (3.80-5.20); White Blood Cell Count 13.82 K/mm3 (4.00-11.30)
[2024-04-11 03:58] LABS: Bun/Creatinine Ratio 10.2 (12.0-20.0); Calcium, Blood 8.4 mg/dL (8.5-10.1); Creatinine, Blood 1.18 mg/dL (0.40-1.00); Potassium, Blood 3.6 mmol/L (3.5-5.5)
[2024-04-11] MEDS ORDERED: Dose Adjust by Pharmacy XX STA (04:16)
--- NOTE | 2024-04-11 05:14 | NUR ---
SHIFT SUMMARY SEE PREVIOUS NOTE BP STABLE. SBP 130'S. CONTINUES TO HAVE PLEURITIC PAIN. PT REPORTS GOOD PAIN CONTROL AT THIS TIME. PT APPEARS TO HAVE BEEN ABLE TO REST FOR THE MAJORITY OF THIS SHIFT. SR ON MONITOR. ON RA. AFEBRILE. ABLE TO REPOSITION SELF IN BED. PT UP TO BSC WITH SBA. PUREWICK REMOVED. BED IN LOWEST POSITION AND CALL LIGHT WITHIN REACH. THIS RN WILL REPORT TO ONCOMING DAYSHIFT RN.
[2024-04-11] MEDS ORDERED: Azithromycin 500 MG in NS 250 ML IV SCH (06:00)
[2024-04-11] MEDS ORDERED: Omeprazole 20 MG CapCR PO SCH (06:00)
[2024-04-11] MEDS ORDERED: Thyroid 60 MG Tab PO SCH (06:00)
[2024-04-11] MEDS ORDERED: CefTRIAXone Sodium 1,000 MG in NS 100 ML IV SCH (06:00)
--- NOTE | 2024-04-11 07:18 | NUR ---
ASSUMPTION NOTE: THIS RN TO ASSUME CARE OF PATIENT. PATIENT RESTING IN BED AND VITAL SIGNS TAKEN. BLOOD PRESSURE SLIGHTLY ELEVATED WITH SYSTOLIC OF 135 BUT BETTER SINCE COMING TO UNIT. PATIENT STATES HER CHEST PAIN THAT IS MORE PLEURETIC WHEN TRYING TO TAKE A DEEP BREATH AND COUGHING IS AT A TWO CURRENTLY. BED AT LOWEST POSITION AND CALL LIGHT WITHIN REACH.
[2024-04-11] MEDS ORDERED: ESTROGENS CONJUGATED 0.3 MG PO SCH (09:00)
[2024-04-11] MEDS ORDERED: Aspirin 81 MG Chew PO SCH (09:00)
[2024-04-11] MEDS ORDERED: AmLODIPine Besylate 5 MG Tab PO SCH (09:00)
[2024-04-11] MEDS ORDERED: Apixaban 5 MG Tab PO SCH (09:00)
--- NOTE | 2024-04-11 11:40 | NUR ---
THIS RN TO CHECK ON PATIENT AFTER RETURNING FROM BREAK AND PATIENT STATES SHE FELT VERY SLEEPY/GROGGY AND WOULD NOT LIKE ANY MORE FETANYL. PATIENT WAS GIVEN FETANYL ON SALESPERSON NEW CARS FOR PAIN. PATIENT STATES HER PAIN CURRENTLY IS AN 8 AND IN THE LEFT SIDE OF HER NECK BUT WOULD LIKE ANYTHING FOR IT. THIS RN NOTIFIED PATIENT THAT HER BLOOD PRESSURE IS ELEVATED AND COULD CORRELATE TO HER PAIN. PATIENT STATED SHE WOULD NOT LIKE TO GO HOME EITHER SHE FEELS WEAK. PT/OT ORDERS WERE PLACED PER MD AND TAYO NOTIFIED ABOUT THAT TO WORK WITH THEM LATER TODAY. PATIENT HAS CALL LIGHT WITHIN REACH AND BED AT THE LOWEST POSITION.
--- NOTE | 2024-04-11 16:03 | NUR ---
CALLED DAUGHTER AND REQUESTING HER TO BRING IN PATIENTS HOME DOSE OF THYROID MEDICATION PER [facility] REQUESTS.
--- NOTE | 2024-04-11 17:04 | NUR ---
SHIFT SUMMARY: PATIENT IS ALERT AND ORIENTED X4 AND COOPERATIVE IN HER CARE. IS ON TELE SHOWING SINUS RYTHM TO SINUS TACH. SATTING >92% ON ROOM AIR, EVEN AND UNLABORED RESPIRATIONS AT REST. PATIENT REORTS CHEST PAIN WHEN TRYING TO TAKE A DEEP BREATH AND SOME NECK PAIN ON THE LEFT SIDE. BLOOD PRESSURE THROUGHOUT SHIFT BECAME ELVATED WHEN PATIENT WOULD EXPERIENCE PAIN. PATIENT DID NOT WANT ANY MORE MEDICATIONS SHE FELT THEY MADE HER VERY SLEEP & GROGGY. WE PLACED SOME TOPICAL CREAM PER EMAR AND PATIENT WAS ABLE TO REST AFTER GIVING AND BLOOD PRESSURE DID LOWER. DID NOT NEED ANY PRN MEDICATIONS FOR BLOOD PRESSURE SHE DID NOT MATCH PARAMETERS. DAUGHTER WAS AT BEDSIDE THROUGHOUT SHIFT. PT ORDERS WERE PLACED PATIENT STATED SHE FELT WEAK TODAY AND NEEDED TO REGAIN SOME STRENGTH. PATIENT DID NOT HAVE MUCH ORAL INTAKE AND WAS ENCOURAGED TO EAT TO BE ABLE TO HAVE STRENGTH WELL. PATIENT WAS SEEN BY MD AND WAS GIVEN THE OK TO POSSIBLE DISCHARGE TODAY BUT PATIENT DECLINED SHE DIDN'T FEEL STRONG ENOUGH. PATIENT THEN EXPRESSED TO THIS RN THAT SHE HAS A LOT OF STRESSORS AT HOME AND FEELS SHE JUST NEEDS A COUPLE MORE DAYS TO RECOVER. DAUGHTER IS TO HAVE AN APPOINTMENT TOMORROW IN [place] AND IF DISCHARGE IS POSSIBLE THEN WILL NEED TO BE LATER FOR HER DAUGHTER TO PICK HER UP. PATIENTS DAUGHTER TO BRING HER HOME THYROID MEDICATIONS PER PHARMACY REQUEST. WILL CONTINUE TO MONITOR PATIENT UNITL SHIFT CHANGE AND NIGHT RN ASSUMES CARE.
[2024-04-12 03:24] VITALS: BP 133/49
[2024-04-12 03:37] LABS: BASOPHILS ABSOLUTE AUTO 0.02 K/mm3 (0.00-0.23); BASOPHILS PERCENT AUTO 0 % (0-2); EOSINOPHILS ABSOLUTE AUTO 0.01 K/mm3 (0.00-0.68); EOSINOPHILS PERCENT AUTO 0 % (0-6); Hemoglobin 9.9 g/dL (11.5-16.0); IMMATURE GRAN ABSOLUTE AUTO 0.04 K/mm3 (0.00-0.10); IMMATURE GRAN PERCENT AUTO 0 % (0-1); LYMPHOCYTES ABSOLUTE AUTO 1.71 K/mm3 (0.84-5.20); LYMPHOCYTES PERCENT AUTO 16 % (21-46); MONOCYTES ABSOLUTE AUTO 0.99 K/mm3 (0.16-1.47); MONOCYTES PERCENT AUTO 9 % (4-13); Mean Corpuscular HGB 28.8 pg (26.0-34.0); Mean Corpuscular Volume 87 fL (80-100); Mean Platelet Volume 11.9 fL (9.1-12.4); NEUTROPHILS ABSOLUTE AUTO 7.87 K/mm3 (1.96-9.15); NEUTROPHILS PERCENT AUTO 74 % (41-73); Platelet Count 168 K/mm3 (150-400); RDW Coefficient Variation 12.5 % (11.7-14.2); RDW Standard Deviation 39.9 fL (35.1-46.3); Red Blood Cell Count 3.44 M/mm3 (3.80-5.20); White Blood Cell Count 10.64 K/mm3 (4.00-11.30)
[2024-04-12 03:56] LABS: Bun/Creatinine Ratio 11.5 (12.0-20.0); Calcium, Blood 8.3 mg/dL (8.5-10.1); Creatinine, Blood 0.95 mg/dL (0.40-1.00); Potassium, Blood 3.2 mmol/L (3.5-5.5)
--- NOTE | 2024-04-12 04:49 | NUR ---
SHIFT SUMMARY PT REMAINS A&OX4. VSS ON RA. ON TELE READING SINUS RYTHM. PT CONTINUES TO REPORT PAIN WHEN COUGHING THAT IS PRIMARILY IN CHEST RADIATING TO NECK AND BACK. PT HISITANT TO TAKE FENTANYL FOR PAIN HOWEVER AGREED TO TAKING PAIN MEDICINE. GIVEN WITH GOOD RELIEF ALONG WITH DRAMAMINE FOR NAUSEA CORRELATED TO PRN MEDICATION. PT WAS ABLE TO REST COMFORTABLY AFTERWARDS. HEATING PAD GIVEN FOR RELIEF OF PAIN ALONG WITH ASPER CREAM APPLIED WITH GOOD RELIEF. PT USING BEDSIDE COMMODE WITH ONE ASSIST, GOOD OUTPUT HOWEVER ENCOURAGED TO CONTINUE INCREASING PO INTAKE. PT CONTINUES TO HAVE NON PRODUCTIVE COUGH... WILL PASS ALONG TO DAY SHIFT TO POSSIBLY ADD ON AN ANTITUSSIVE FOR BETTER RELIEF. NO FURTHER QUESTIONS OR CONCERNS AT THIS TIME. CALL STOKES WITHIN REACH.
[2024-04-12] MEDS ORDERED: Misc. Tablet PO SCH (06:00)
[2024-04-12 07:25] VITALS: BP 147/65
[2024-04-12] MEDS ORDERED: Guaifenesin/Dextromethorphan Syrup 5 ML UDC PO PRN (09:45)
[2024-04-12] MEDS ORDERED: Potassium Chloride 20 MEQ TabCR PO ONE (09:55)
[2024-04-12 10:58] VITALS: BP 143/77
[2024-04-12 12:55] LABS: Adenovirus Not Detected (NOT DETECT); Coronavirus 229E Not Detected (NOT DETECT); Coronavirus HKU1 Not Detected (NOT DETECT); Coronavirus NL63 Not Detected (NOT DETECT)
[2024-04-12 12:56] LABS: Bordetella pertussis Not Detected (NOT DETECT); Chlamydophila pneumoniae Not Detected (NOT DETECT); Coronavirus OC43 Not Detected (NOT DETECT); Human Metapneumovirus Not Detected (NOT DETECT); Human Rhinovirus/Enterovirus Not Detected (NOT DETECT); Influenza A/2009-H1 Not Detected (NOT DETECT); Influenza A/H1 Not Detected (NOT DETECT); Influenza A/H3 Not Detected (NOT DETECT); Influenza B Not Detected (NOT DETECT); Mycoplasma pneumoniae Not Detected (NOT DETECT); Parainfluenza Virus 1 Not Detected (NOT DETECT); Parainfluenza Virus 2 Not Detected (NOT DETECT); Parainfluenza Virus 3 Not Detected (NOT DETECT); Parainfluenza Virus 4 Not Detected (NOT DETECT); Respiratory Syncytial Virus Not Detected (NOT DETECT); SARS-Cov-2 (COVID-19), BioFire Not Detected (NOT DETECT)
[2024-04-12] MEDS ORDERED: Benzonatate 100 MG Cap PO PRN (14:45)
[2024-04-12 15:03] VITALS: BP 147/71
--- NOTE | 2024-04-12 17:17 | NUR ---
SHIFT SUMMARY: PT ALERT AND ORIENTED X4, ABLE TO FOLLOW COMMANDS AND MAKE NEEDS KNOWN. STRENGTH EQUAL BILATERALLY. BP AND HR STABLE. AFEBRILE. SPO2 >98% ON ROOM AIR. LUNG SOUNDS DIM IN BASES. PT WITH PRODUCTIVE COUGH, COUGHING UP THICK YELLOW SECRETIONS. RESP PANEL NEGATIVE. PT COMPLAINING OF 8/10 PLEURITIC PAIN THIS SHIFT, MEDICATED PER EMAR. ABD SOFT, NON TENDER, BOWEL SOUNDS +. NO BM. PT SBA TO AND FROM BS. ABLE TO TAKE A SHOWER THIS EVENING. PT NOW MEDICAL WITH TELE STATUS. POSSIBLE DISCHARGE IN AM. DAUGHTER CALLED AND UPDATED THIS EVENING OF PT PLAN OF CARE. BED IN LOW, CALL LIGHT IN REACH, WILL REPORT TO ONCOMING RN.
[2024-04-12 20:13] VITALS: BP 159/68
[2024-04-13 00:21] VITALS: BP 168/75
[2024-04-13 03:30] VITALS: BP 169/99
--- NOTE | 2024-04-13 05:13 | NUR ---
SHIFT SUMMARY PT DOING A LOT BETTER THROUGHOUT THE NIGHT. PT WAS GIVEN NEW PRNs FOR COUGH WHICH HELPED TREMEDOUSLY. PT GIVEN TYLENOL FOR PAIN THAT WAS GIVEN WITH GOOD RELIEF. PT REPORTED FEELING READY FOR DISCHARGE. NO FURTHER QUESTIONS OR CONCENRS AT THIS TIME. CALL STOKES WITHIN REACH. WILL REPORT TO ONCOMING NURSE.
[2024-04-13 08:59] VITALS: BP 156/66
[2024-04-13 11:33] VITALS: BP 152/71
[2024-04-13] MEDS ORDERED: BENZ100A PO (12:17)
[2024-04-13] MEDS ORDERED: AMLO5 PO (12:17)
[2024-04-13] MEDS ORDERED: ELIQUIS5 M2 PO (12:17)
[2024-04-13] MEDS ORDERED: VISBIOME 112.51 EACH PO (12:19)
[2024-04-13] MEDS ORDERED: Q-Tussin100 MG/5 M PO (12:19)
[2024-04-13] MEDS ORDERED: AMOCLA875 PO (12:20)
--- NOTE | 2024-04-13 15:44 | NUR ---
Discharge note. Pt reports that she is feeling better. Pain has been under control with APAP and cough syrup. Pt walked into the bathroom with minimal assistance. Good PO intake, BM this morning. All discharge questions were answered for Pt and daughter. All belongings were taken with the Pt. Pt was escorted to the door with staff.
== END 2024-04-13 15:55 | disposition home or self-care (01) | DRG 175 ==
LOC: ER 19:27 → PCU 19:28 → ERHOLD 19:28 → PCU 04-10 18:28
PROVIDERS: Emergency Medicine; Family Medicine; Student in an Organized Health Care Education/Training Program; ADMIT Student in an Organized Health Care Education/Training Program
DX: I26.94 Multiple subsegmental thrombotic pulmonary emboli without acute cor pulmonale (principal); J18.9 Pneumonia, unspecified organism; I26.99 Other pulmonary embolism without acute cor pulmonale; D63.1 Anemia in chronic kidney disease; E03.9 Hypothyroidism, unspecified; F41.9 Anxiety disorder, unspecified; I12.9 Hypertensive chronic kidney disease with stage 1 through stage 4 chronic kidney disease, or unspecified chronic kidney disease; F32.A Depression, unspecified; K21.9 Gastro-esophageal reflux disease without esophagitis; K58.9 Irritable bowel syndrome, unspecified; M85.80 Other specified disorders of bone density and structure, unspecified site; N18.31 Chronic kidney disease, stage 3a; E87.6 Hypokalemia; Z88.8 Allergy status to other drugs, medicaments and biological substances; Z86.73 Personal history of transient ischemic attack (TIA), and cerebral infarction without residual deficits; Z88.5 Allergy status to narcotic agent; Z88.2 Allergy status to sulfonamides; Z88.1 Allergy status to other antibiotic agents; Z79.82 Long term (current) use of aspirin; I25.2 Old myocardial infarction; Z79.890 Hormone replacement therapy
CPT/HCPCS: 0202U; 36415; 71045; 71046; 71275; 80048; 80053; 83690; 83735; 83880; 84145; 84484; 85025; 85520; 85610; 85730; 93005; 93010; 93306; 94762; 96365-59; 96366; 96367-59; 96375; 96375-59; 96376; 97110; 97162; 97530; 99285-25; A9270; G0378; J0360; J0456; J0696; J1644; J2060; J3010; J7050; Q9967

== ENCOUNTER → 2024-10-09 | Outpatient (CLI) | payer OTHER ==
[~2024-10-09] MED LIST changes: +AMOCLA875 PO; +ELIQUIS5 M2 PO; +Q-Tussin100 MG/5 M PO; +VISBIOME 112.51 EACH PO
== END ==
LOC: LAB 16:40 → LAB SHORT 16:40
DX: J34.89 Other specified disorders of nose and nasal sinuses (principal)
CPT/HCPCS: 87070